=== PATIENT | female | born 1940 | race Caucasian/White ===

== ENCOUNTER 2016-04-24 09:44 | Inpatient (IN) | payer MEDICARE, OTHER ==
[~2016-04-24] VITALS: Ht 162.6 cm; Wt 77.4 kg
[2016-04-24] VITALS (294 sets, daily range): BP systolic 96–108; BP diastolic 37–64; PULSE 80–84; TEMP 95.5–96.8; O2SAT 92–100
[~2016-04-24 09:44] MED LIST: CALCIUM + D 6001 TA1 PO; NORCO 325 MG-51 TAB PO; POTASSIUM BICARBONATE 25 MEQ PO; PREDNISONE20 MG PO; VITAMIN B-12100 MCG PO; VITAMIN C500 MG PO; [UNRECOGNIZED DRUG - OTHER]
[2016-04-24] MEDS ORDERED: ALDACTONE 25MG25 M1 PO (11:32)
[2016-04-24] MEDS ORDERED: KLONOPIN 0.5MG0.5 MG PO (11:33)
[2016-04-24] MEDS ORDERED: CATAPRES 0.1MG0.1 MG PO (11:34)
[2016-04-24] MEDS ORDERED: NORVASC 10MG10 MG PO (11:34)
[2016-04-24] MEDS ORDERED: COZAAR100 MG PO (11:36)
[2016-04-24] MEDS ORDERED: HCTZ 25MG TAB25 MG PO (11:38)
[2016-04-24] MEDS ORDERED: ASPIRIN E.C. 8181 MG PO (11:42)
[2016-04-24] MEDS ORDERED: MOTRIN 600600 MG/TAB PO (11:43)
[2016-04-24] MEDS ORDERED: OYSCO 500 + D 51 TAB PO (11:43)
[2016-04-24] MEDS ORDERED: B-121000 MCG PO (11:44)
[2016-04-24] MEDS ORDERED: EPA FISH OIL1 SGL PO (11:46)
[2016-04-24] MEDS ORDERED: VITAMINE200 PO (11:46)
[2016-04-24] MEDS ORDERED: NATURAL POTASS595 MG PO (11:48)
[2016-04-24 13:24] LABS: INR 1.7 (0.8-3.0); PROTHROMBIN TIME 19.5 SECONDS (9.7-12.8)
[2016-04-24 13:27] LABS: PARTIAL THROMBOPLASTIN TIME 34.9 SECONDS (26.0-37.0)
[2016-04-24 13:28] LABS: ADJUSTED CALCIUM 8.6 mg/dL (8.4-10.2); ALBUMIN 2.6 gm/dL (3.5-5.0); BILIRUBIN,TOTAL 1.3 mg/dL (0.0-1.0); CALCIUM 7.5 mg/dL (8.4-10.2); POTASSIUM 4.9 mmol/L (3.4-5.0); TOTAL PROTEIN 5.6 gm/dL (6.4-8.2)
[2016-04-24 13:33] LABS: PHOSPHOROUS 10.5 mg/dL (2.5-4.5)
[2016-04-24 13:37] LABS: MEAN CELL VOLUME 89 fl (80.0-100.0); MEAN CORPUSCULAR HGB CONC 34 g/dl (33.0-37.0); MEAN PLATELET VOLUME 11.1 fl (7.4-10.4); PLATELET COUNT 396 K/mm3 (130-400); RED BLOOD COUNT 2.86 M/mm3 (4.10-5.30); REDCELL DISTRIBUTION WIDTH-CV 14.6 % (11.5-14.5)
[2016-04-24 13:38] LABS: HEMATOCRIT 25.3 % (37.0-47.0); HEMOGLOBIN 8.5 g/dl (12.5-16.0); MEAN CORPUSCULAR HEMOGLOBIN 30 pg (27.0-31.0)
[2016-04-24 13:43] LABS: WHITE BLOOD COUNT 21.3 K/mm3 (4.8-10.8)
[2016-04-24 13:49] LABS: CREATININE, serum 4.14 mg/dL (0.52-1.25)
[2016-04-24 13:56] LABS: URIC ACID 12.6 mg/dL (2.5-6.2)
[2016-04-24 14:28] LABS: ARTERIAL BLD GAS O2 SATURATION 95.9 % (92-100); ARTERIAL BLD GAS TCO2 CT 5.3; ARTERIAL BLOOD GAS BASE EXCESS -21.4 (-2-2); ARTERIAL BLOOD GAS HCO3 4.9 meq/L (22-26); ARTERIAL BLOOD GAS PO2 96.6 mmHg (80-100); OXYHEMOGLOBIN 95.1 %
[2016-04-24 14:29] LABS: ARTERIAL BLOOD GAS pH 7.18 (7.35-7.45); ATS? YES
[2016-04-24 14:41] LABS: DOHLE BODIES PRESENT; METAMYELOCYTE 3 % (0-0); MYELOCYTE 1 % (0-0); NEUTROPHILS 51 % (42.0-75.2); TOXIC GRANULATION PRESENT
[2016-04-24 14:43] LABS: ADD PATHOLOGY DIFF REVIEW YES; ANISOCYTOSIS 1+
[2016-04-24 14:44] LABS: ACANTHOCYTES 3+
[2016-04-24 14:45] LABS: BAND 37 % (0-10); TOTAL CELLS COUNTED 200
[2016-04-24 14:46] LABS: PLATELET ESTIMATE NORMAL (NORMAL)
[2016-04-24 15:19] LABS: VENOUS BLOOD GAS BE -21.3 (-4-4); VENOUS BLOOD GAS SAO2 73.9 % (60-80)
[2016-04-24 15:20] LABS: VENOUS BLOOD GAS SITE CENTRAL LINE
[2016-04-24 16:10] LABS: SALICYLATE < 1.0 mg/dL
[2016-04-24 16:20] LABS: TROPONIN-I 0.018 ng/mL (0.000-0.034)
[2016-04-24 17:24] LABS: ADJUSTED CALCIUM 7.9 mg/dL (8.4-10.2); ALBUMIN 1.9 gm/dL (3.5-5.0); CALCIUM 6.2 mg/dL (8.4-10.2); POTASSIUM 4.3 mmol/L (3.4-5.0); TOTAL PROTEIN 4.4 gm/dL (6.4-8.2)
[2016-04-24 17:35] LABS: PH 5 (5-8); URINE APPEARANCE Cloudy; URINE BACTERIA Rare /hpf; URINE BILIRUBIN Negative (NEGATIVE); URINE BLOOD 3+ (NEGATIVE); URINE COLOR Amber; URINE GLUCOSE Negative (NEGATIVE); URINE KETONE Trace (NEGATIVE); URINE UROBILINOGEN Negative (NEGATIVE)
[2016-04-24 17:49] LABS: CREATININE, serum 3.91 mg/dL (0.52-1.25)
[2016-04-24 18:01] LABS: C-REACTIVE PROTEIN 38.5 mg/dL (0.0-0.9)
[2016-04-24 19:34] LABS: VENOUS BLOOD GAS BE -19.6 (-4-4); VENOUS BLOOD GAS SAO2 71.5 % (60-80)
[2016-04-24 19:36] LABS: VENOUS BLOOD GAS SITE CENTRAL LINE
[2016-04-25 08:40] LABS: PATHOLOGY DIFF REVIEW OK
[2016-04-25 22:14] LABS: PROT-CREAT RATIO, URINE 1.4 (())
== END 2016-04-24 22:30 | disposition short-term general hospital (02) | DRG 871 ==
LOC: MEDICAL 09:44 → ICU 14:07
PROVIDERS: Internal Medicine Nephrology; Surgery
PROC: 02HV33Z Insertion of Infusion Device into Superior Vena Cava, Percutaneous Approach (ICD-10-PCS; principal; 2016-04-24 13:30)
DX: A41.9 Sepsis, unspecified organism (principal); M72.6 Necrotizing fasciitis; N17.9 Acute kidney failure, unspecified; E87.2 Acidosis; E46 Unspecified protein-calorie malnutrition; E86.1 Hypovolemia; E11.9 Type 2 diabetes mellitus without complications; E87.6 Hypokalemia; D63.1 Anemia in chronic kidney disease; N18.9 Chronic kidney disease, unspecified; Z88.0 Allergy status to penicillin
CPT/HCPCS: C1751; J0692; J1170; J1720; J3370; J3430; J7030; J7040; J7050; J7060